=== PATIENT | female | born 1980 | race Two or more races ===

== ENCOUNTER 2019-09-07 09:57 | Outpatient (CLI) | payer MEDICAID, SELFPAY ==
--- NOTE | 2019-09-07 | MR_ITS ---
WS: [id number] MRI LUMBAR SPINE NONCONTRAST TECHNIQUE: Sagittal T1, T2 and STIR imaging. Axial T1 and T2 imaging. CLINICAL INFORMATION: INTERVERTBRAL DISC DISORDER WITH RADICULOPATHY LUMBOSACRAL R COMPARISON: None. FINDINGS: Normal lumbar alignment. No acute compression. No high-grade central canal stenosis. L1-L2: Normal. L2-L3: Normal. L3-L4: No significant disc bulging. Mild facet arthropathy. Spinal canal and foramen are patent. L4-L5: No significant disc bulging. Mild facet arthropathy. Tiny left foraminal protrusion with mild left foraminal narrowing. Mild facet arthropathy. L5-S1: No significant disc bulging. Mild facet arthropathy. Spinal canal and foramen are patent. Visualized pelvic bony structures: Normal. Paravertebral soft tissues: Normal. MR/MR lumbar spine wo con* [id number] IMPRESSION: 1. Normal lumbar alignment. No acute compression. No high-grade central canal stenosis. 2. Small left foraminal protrusion L4-5 with mild left foraminal narrowing and slight encroachment on the exiting left L4 nerve root. 3. Mild facet arthropathy L4-L5 and L5-S1.
--- NOTE | 2019-09-07 | XR_ITS ---
WS: [id number] Lumbar spine with flexion, extension, and neutral lateral, 09/07/2019 Clinical Data: INTERVERTEBRAL DISC DISORDER W/ RADICULOPATHY Comparison: None. Findings: No compression fractures or subluxation is seen. No disc space narrowing is seen. No limitation of motion or subluxation is seen. There may be an intrauterine device in the pelvis. XR/XR lumbar spine f/e only [id number] Impression: Negative lateral lumbar spine.
--- NOTE | 2019-09-07 10:22 | MR_ITS ---
WS: [id number] MRI LUMBAR SPINE NONCONTRAST TECHNIQUE: Sagittal T1, T2 and STIR imaging. Axial T1 and T2 imaging. CLINICAL INFORMATION: INTERVERTBRAL DISC DISORDER WITH RADICULOPATHY LUMBOSACRAL R COMPARISON: None. FINDINGS: Normal lumbar alignment. No acute compression. No high-grade central canal stenosis. L1-L2: Normal. L2-L3: Normal. L3-L4: No significant disc bulging. Mild facet arthropathy. Spinal canal and foramen are patent. L4-L5: No significant disc bulging. Mild facet arthropathy. Tiny left foraminal protrusion with mild left foraminal narrowing. Mild facet arthropathy. L5-S1: No significant disc bulging. Mild facet arthropathy. Spinal canal and foramen are patent. Visualized pelvic bony structures: Normal. Paravertebral soft tissues: Normal.
== END 2019-09-07 09:58 | disposition home or self-care (01) ==
PROVIDERS: Visit Provider Licensed Practical Nurse
DX: M51.17 Intervertebral disc disorders with radiculopathy, lumbosacral region (principal); M51.26 Other intervertebral disc displacement, lumbar region
CPT/HCPCS: 72040; 72120; 72141; 72148